=== PATIENT | female | born 1980 | race Caucasian/White ===

== ENCOUNTER 2023-12-22 14:13 | Outpatient (REF) | payer OTHER, SELFPAY ==
--- NOTE | ~2023-12-22 | MM_ITS ---
EXAMINATION: MM SCREENING DIGITAL BREAST TOMOSYNTHESIS, BILATERAL CLINICAL INFORMATION: Screening. Asymptomatic. COMPARISON: Mammography: Baseline. TECHNIQUE: Digital breast mammography with tomosynthesis is performed in both the craniocaudal and mediolateral oblique views along with computer-aided detection (CAD). FINDINGS: The breasts are heterogeneously dense, which may obscure small masses (ACR BI-RADS breast composition Category c). There are no significant masses, abnormal calcifications, or other abnormalities. MM/MM tomosynthesis screening BI IMPRESSION: No mammographic evidence of malignancy. ASSESSMENT: BI-RADS BI-RADS 1 - Negative RECOMMENDATION: Routine annual mammography screening. 1 year F/U This examination should not preclude the clinical evaluation of a suspicious palpable abnormality. This patient's information was entered into a reminder system with a target due date for their next mammogram. Electronically signed by: Danielle Clayton DO 12/24/2023 08:16 PM EDT
== END 2023-12-22 14:14 | disposition home or self-care (01) ==
LOC: HO.MAMMO 14:13
PROVIDERS: PCP Nurse Practitioner Adult Health; Visit Provider Nurse Practitioner Adult Health
DX: Z12.31 Encounter for screening mammogram for malignant neoplasm of breast (principal)
CPT/HCPCS: 77063; 77067

== ENCOUNTER → 2023-12-22 14:30 | Outpatient (BNV) | payer OTHER, SELFPAY | PROVIDERS: PCP Nurse Practitioner Adult Health; Visit Provider Internal Medicine | DX: Z12.31 Encounter for screening mammogram for malignant neoplasm of breast (principal) | CPT/HCPCS: 77063; 77067 ==

== ENCOUNTER 2024-03-08 07:53 | Outpatient (REF) | payer OTHER, SELFPAY ==
[2024-03-08 10:37] LABS: MANUAL DIFF FLAG NO
[2024-03-08 10:40] LABS: Basophils Absolute Auto 0.1 X10*3/uL (0.0-0.2); Basophils Percent Auto 1.1 % (0-2); Eosinophils Absolute Auto 0.6 X10*3/uL (0.0-0.4); Hematocrit 39.7 % (37.0-47.0); Hemoglobin 13.5 g/dl (12.0-16.0); Imm Gran Abs Auto 0.02 X10*3/uL (0.00-0.03); Imm Gran Pct Auto 0.2 % (0.0-0.4); Lymphocytes Absolute Auto 3.2 X10*3/uL (1.2-4.9); Lymphocytes Percent Auto 32.3 % (20-40); Mean Corpuscular Hemoglobin 31.7 pg (27.0-33.0); Mean Corpuscular Volume 93.2 fL (80.0-98.0); Mean Platelet Volume 10.6 fL (9.4-12.3); Monocytes Absolute Auto 0.9 X10*3/uL (0.1-1.2); Monocytes Percent Auto 8.7 % (2-11); Neutrophils Absolute Auto 5.1 x10*3/uL (2.0-8.3); Neutrophils Percent Auto 51.7 % (45-73); Platelet Count 323 X10*3/uL (160-400); Red Blood Count 4.26 X10*6/uL (4.20-5.50); Red Cell Distribution Width 12.4 % (11.0-16.0); White Blood Count 9.9 X10*3/uL (4.8-10.8)
[2024-03-08 11:04] LABS: Alanine Aminotransferase 18 U/L (0-31); Albumin Level 3.8 g/dL (3.5-5.0); Alkaline Phosphatase 79 U/L (39-117); Anion Gap 8 (12-20); Aspartate Amino Transferase 19 U/L (5-31); Bilirubin Total 0.5 mg/dL (0.0-1.0); Blood Urea Nitrogen 11 mg/dL (9-16); Calcium 8.6 mg/dL (8.4-10.2); Carbon Dioxide 29 mmol/L (22-29); Chloride 101 mmol/L (96-108); Cholesterol 144 mg/dL (<200); Estimated Glomerular Filt Rate > 60; Glucose Random 150 mg/dL (60-115); HDL Cholesterol 56 mg/dL (>40); LDL Cholesterol Calculated 75 mg/dL (<100); Potassium 4.1 mmol/L (3.3-5.1); Sodium 134 mmol/L (135-145); Total Protein 7.4 g/dL (6.5-8.0); Triglycerides 68 mg/dL (<150)
== END 2024-03-08 07:54 | disposition home or self-care (01) ==
LOC: HO.10HDL 07:53
PROVIDERS: Visit Provider Nurse Practitioner Adult Health
DX: E55.9 Vitamin D deficiency, unspecified (principal); E10.65 Type 1 diabetes mellitus with hyperglycemia
CPT/HCPCS: 36415; 80053; 80061; 82306; 85025

== ENCOUNTER 2024-05-02 12:20 | Outpatient (REF) | payer OTHER, SELFPAY ==
[2024-05-02 13:42] LABS: Anion Gap 10 (12-20); Blood Urea Nitrogen 12 mg/dL (9-16); Carbon Dioxide 27 mmol/L (22-29); Chloride 103 mmol/L (96-108); Estimated Glomerular Filt Rate > 60; Glucose Random 202 mg/dL (60-115); Potassium 3.8 mmol/L (3.3-5.1); Sodium 136 mmol/L (135-145)
== END 2024-05-02 12:21 | disposition home or self-care (01) ==
LOC: HO.10HDL 12:20
PROVIDERS: Visit Provider Nurse Practitioner Adult Health
DX: E87.1 Hypo-osmolality and hyponatremia (principal)
CPT/HCPCS: 36415; 80048

== ENCOUNTER 2024-12-19 07:56 | Outpatient (REF) | payer OTHER, SELFPAY ==
--- OUTSIDE RECORDS SUMMARY | 2024-12-19 08:02 | XMS_ITS | Encounter Summary ---
Author Organization [facility] Address [address] [place] [address] Phone Care Team Providers Care Facility Maintenance Technician Name Role Phone Sheron Koroma SHIP SUPERINTENDENT Primary Care Provider [phone] Dany Burnett MD Unavailable [phone] Alvina Brooks OD Unavailable Madison Castillo MD Unavailable [phone] Angelica Gonzales SHIP SUPERINTENDENT Unavailable Giovanna Lu MILLINERY SALESPERSON Unavailable Star Oleary OD Unavailable [phone] Encounter Details Date Type Department Care Team (Late st Contact Info) Description 05/10/2020 Procedure Pass [facility], Ct Scan - [address] [address] Social History Tobacco Use Types Packs/Day Years Used Date Smoking Tobacco: Never Smokeless Tobacco: Never Alcohol Use Standard Drinks/Week Comments Yes 0 (1 standard drink = 0.6 oz pur e alcohol) <2 drinks/month Comments No Sex and Gender Information Value Date Recorded Sex Assigned at Not on file Legal Sex Female 9:20 PM EDT Gender Identity Not on file Sexual Orientation Not on file 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 Not on file Not on file documented as of this encounter Plan of Treatment Upcoming Encounters Date Type Department Care Team (Late st Contact Info) Description 01/23/2025 8:00 AM EST Office Visit [facility] [address] [place] [address] [place] [address] Angelica Gonzales CNP 22 [facility], 1st [place] [address] 06/06/2025 8:00 AM EDT Office Visit [address] [place] [address] Sheron Koroma CNP [address] [place] [address], [address] [place] [address] 06/08/2025 2:00 PM EDT Office Visit [address] [place] [address] Sheron Koroma CNP [address] [place] [address], [address] [place] [address] documented as of this encounter Visit Diagnoses Not on filedocumented in this encounter Additional Health Concerns Infection Onset Date Last Indicated Resolved Time CoV-Presumed 12/10/2021 12/10/2021 12/31/2021 1:22 AM EDT Assessment Noted Time PHQ-2 Depression Total Score: 0 03/13/20 10:50 AM EST documented as of this encounter Care Teams Facility Maintenance Technician Relationship Specialty Start Date End Date Sheron Koroma CNP [address] [place] [address], [address] [place] [address] PCP - General Family Medicine 05/19/19 Dany Burnett MD [address] [place] [address], [address] [place] [address] Internal Medicine 05/19/19 Alvina Brooks OD [address] [place] [address] Optometry 09/03/20 05/27/23 Madison Castillo MD 22 [facility], [address] [place] [address] [email or web address] Medicine 05/28/23 Angelica Gonzales CNP [address] [address] Nurse Practitioner 05/28/23 Giovanna Lu NP 269 [place] [facility] [address]Allergy [facility] [place] [address] Nurse Practitioner 05/28/23 Star Oleary OD 1655 [facility] [address] [address] Optometry 06/06/24 documented as of this encounter Additional Source Comments The information contained in this document represents components of the legal health record. It is not the complete legal health record.[facility]
--- OUTSIDE RECORDS SUMMARY | 2024-12-19 08:02 | XMS_ITS | Encounter Summary ---
Author Organization [facility] Address [address] [place] [address] Phone Care Team Providers Care Road Maker Name Role Phone Sheron Koroma VACCINE MANAGER Primary Care Provider [phone] Dany Burnett MD Unavailable [phone] Madison Castillo MD Unavailable [phone] Angelica Gonzales VACCINE MANAGER Unavailable Giovanna Lu ART DISPLAY MAKER Unavailable [phone] Star Oleary OD Unavailable [phone] Encounter Details Date Type Department Care Team (Late st Contact Info) Description 10/23/2024 Telephone [facility] [address] [place], [place] [id number] [email or web address] Social History Tobacco Use Types Packs/Day Years Used Date Smoking Tobacco: Never Smokeless Tobacco: Never Alcohol Use Standard Drinks/Week Comments Yes 0 (1 standard drink = 0.6 oz pur e alcohol) ~1 drink/month (2024) Child or Family Care Answer Date Record ed Do you have problems with on e of the following making it difficult for you to work, study, or receive health care? No 06/06/2024 Education Answer Date Recorded Are you interested in help w ith more adult education (for example, completing high school, GED, job training, learning the [place] language, technical skills, or developing parenting skills)? No 06/06/2024 Are you concerned about learning? Not on file 06/06/2024 No 06/06/2024 Yes 06/06/2024 Food Answer Date Recorded Within the past 6 months we worried whether our food would run out before we got money to buy more. Never True 06/06/2024 Within the past 6 months the food we bought just didn't last and we didn't have enough money to get more. Never True Residential Stability Answer Date Recor ded What is your housing situation today? I have bernard sing 06/06/2024 How many times have you move d in the past 12 months? Zero (I did not move) 06/06/2024 Paying for Meds Answer Date Recorded Do you have trouble paying for medicines? No 06/06/2024 Paying Utility Bills Answer Date Record ed Do you have trouble paying your heating or elect ricity bill? No 06/06/2024 Transportation Answer Date Recorded Has the lack of transportati on kept you from medical appointments or from getting medications? No 06/06/2024 Unemployment Answer Date Recorded Are you currently unemployed or working on a part-time or temporary basis, and looking for work? No 06/06/2024 Digital Access Answer Date Recorded No 06/06/2024 Yes 06/06/2024 Do you have reliable internet access at home? Ye s 06/06/2024 Do you have a device (e.g., phone, tablet, computer) with a working camera? Yes 06/06/2024 Intimate Partner Violence Answer Date R ecorded Denied Basic Needs Not on file 06/06/2024 In the past 12 months have y ou been in a relationship with a person who hurts, threatens, or tries to control you? No 06/06/2024 Worried food would run out Not on file 06/06 In the past 12 months have y ou been in a relationship with a person who hurts, threatens, or tries to control you? No 06/06/2024 Comments No Sex and Gender Information Value [...] Description 01/23/2025 8:00 AM EST Office Visit [facility] [address] [place] [address] [place] [address] Angelica Gonzales CNP [address] [place] [address], [address] [place] [address] 06/06/2025 8:00 AM EDT Office Visit [address] [place] [address] Sheron Koroma CNP [address] [place] [address], [address] [place] [address] 06/08/2025 2:00 PM EDT Office Visit [address] [place] [address] Sheron Koroma CNP [address] [place] [address], [address] [place] [address] documented as of this encounter Visit Diagnoses Not on filedocumented in this encounter Additional Health Concerns Assessment Noted Time PHQ-2 Depression Total Score: 0 06/07/19 25 2:44 PM EDT documented as of this encounter Care Teams Road Maker Relationship Specialty Start Date End Date Sheron Koroma CNP [address] [place] [address], [address] [place] [address] PCP - General Family Medicine 05/19/19 Dany Burnett MD [address] [place] [address], [address] [place] [address] Internal Medicine 05/19/19 Madison Castillo MD 22 [facility], [address] [place] [address] [email or web address] Internal Medicine 05/28/23 Angelica Gonzales CNP 22 [facility], [address] [place] [address] [email or web address] Nurse Practitioner 05/28/23 Giovanna Lu NP [address] [place] [address] [address]ergy [facility] [place] [address] Nurse Practitioner 05/28/23 Star Oleary OD 1655 [facility] [address] [address] Optometry 06/06/24 documented as of this encounter Additional Source Comments The information contained in this document represents components of the legal health record. It is not the complete legal health record.[facility]
--- OUTSIDE RECORDS SUMMARY | 2024-12-19 08:03 | XMS_ITS | Clinical Summary ---
Author Organization [facility] Address [address] [place] [address] Phone Care Team Providers Care Surveyor Oil Well Directional Name Role Phone Sheron Koroma COTTON CHOPPER Primary Care Provider [phone] Dany Burnett MD Unavailable [phone] Madison Castillo MD Unavailable [phone] Angelica Gonzales CNP Unavailable [phone] Giovanna uL ENVELOPE ADJUSTER Unavailable [phone] Star Oleary OD Unavailable [phone] Allergies Active Allergy Reactions Criticality Noted Date Comments Nsaids (Non-Steroidal Anti-Inflammatory Drug) Shortness Of Breath High 05/26/2019 Medications triamcinolone (NASACORT AQ) 55 mcg/actuation nasal inhaler 2 sprays by Nasal route daily. Active fexofenadine (ABBY) 180 MG tablet Take 180 mg by mouth daily. Active blood-glucose transmitter (DEXCOM G6 TRANSMITTER MISC) by Miscellaneous route. Active DUPIXENT SYRINGE 300 mg/2 mL subcutaneous syringe Inject 300 mg under the skin once a week. 023 Active ACCU-CHEK GUIDE TEST STRIPS Strp stripsIndication s:Type 1 diabetes mellitus without complication,Ins ulin pump in place 1 each by Miscellaneous route 2 (two) times a day. 200 strip 11 024 Active insulin pen needles, disposable, 32 gauge x NdleIndications: Type 1 diabetes mellitus with hyperglycemia 1 each by Miscellaneous route as needed. 30 each 1 024 Active montelukast (SINGULAIR) 10 mg tablet TAKE ONE (1) TABLET BY MOUTH EVERY NIGHT AT BEDTIME 90 tablet 3 025 Active HUMALOG U-100 INSULIN 100 unit/mL injection vialIndications: Type 1 diabetes mellitus with hyperglycemia INJECT UP TO 110 UNITS DAILY VIA INSULIN PUMP 100 mL 3 025 Active pravastatin (PRAVACHOL) 40 MG tablet TAKE ONE (1) TABLET BY MOUTH EVERY DAY 120 tablet 2 025 Active ZEPBOUND 2.5 mg/0.5 mL subcutaneous penIndications:T ype 1 diabetes mellitus with hyperglycemia Inject 0.5 mL (2.5 mg total) under the skin every 7 days. 2 mL 5 025 2024 Discontinued Active Problems Problem Noted Date Diagnosed Date BMI 33.0-33.9,adult 07/21/2024 Assessment & Plan (07/21/2024 11:30 AM EDT): - She reports consistent weight gain, weight gain has been consistent over the past ~9 months, steadily gaining 16 pounds from November until today's visit - A prescription for Zepbound 2.5 mg weekly will be initiated, has tried and failed Ozempic, Bydureon, and Victoza in the past, we discussed if unable to tolerate zepbound, likely side effects are a class effect and unlikely to tolerate any of the GLP1 or GLP1/GIP medications - She is advised to monitor for side effects such as nausea, constipation, or worsening acid reflux and to contact the office if any persistent side effects occur. 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 Ensure yearly diabetic eye exam. Assessment & Plan (07/21/2024 11:30 AM EDT): Up to date on eye care Family history of breast cancer in mother 2023 Assessment & Plan (12/03/2023 4:50 PM EDT): Recent diagnosis (age 74) treated with lumpectomy and sentinel node biopsy x 1. Low risk of recurrence per Roverto. She agrees to baseline mammogram. Encounter for general adult medical examination with abnormal findings 05/28/2023 Assessment & Plan (06/06/2024 3:40 PM EDT): Eligible for Covid vaccine at the pharmacy. Warning signs of breast cancer and breast self-awareness reviewed. Pap smear 2026 per ASCCP guidelines. CRC screening age 45. Labs are up to date. We discussed options for dental care; she has dental anxiety. Assessment & Plan (05/28/2023 3:47 PM EST): Eligible for Covid vaccine at the pharmacy. The rest of her immunizations are up to date. Warning signs of breast cancer and breast self-awareness reviewed. We discussed baseline mammography which she declines for now. Pap smear updated per ASCCP guidelines. CRC screening age 45. Labs as below. 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 Bloating 05/28/2023 Assessment & Plan (05/28/2023 3:51 PM EST): Given bloating and persistently low vitamin D level, we'll check labs today. I also placed a referral to GI to consider EGD. For now, continue weekly D2 therapy, d/c OTC D3. Vitamin D deficiency, unspecified 11/16/2022 Assessment & Plan (06/06/2024 3:40 PM EDT): Level was 30 when last checked. Assessment & Plan (12/03/2023 4:51 PM EDT): Check level before refilling vitamin D2. Consider D3 supplementation if borderline. Assessment & Plan (11/16/2022 4:48 PM EDT): Will prescribe another 5 months of weekly D2 therapy and she will hold D3 prescription at this time. Check labs in 5-6 months. If there is no improvement, consider GI consult. There is no evidence of underlying hepatic or renal disorders and no medications known to contribute to deficiency. Type 1 diabetes mellitus with hyperglycemia 10/21 Assessment & Plan (12/06/2024 8:58 AM EDT): A1c to be done in office at next visit with Angelica in January. She frustrated with her weight as she is exercising regularly and following a healthful diet. She reports that blood sugars have been good with new pump. BP is at goal of <130/80. Urine microalbumin/creatinine ratio was normal in the spring. Flu shot today. Eligible for Covid vaccine. Tdap 2028, sooner with injury. Assessment & Plan (07/21/2024 11:30 AM EDT): - Her time in range has improved from 45% at last visit to 64.5% over the past two weeks, representing ~20% increase. - The average glucose level has decreased from 209 to 166, and the A1c level has improved from 8.6% to 7.6%. The highest average daily glucose level was 189 in the past 2 weeks, still lower than overall average at our last visit . - The total daily insulin dose on the pump download is 82.6 units, and the prescription is for 90 units, this was increased today to 110 units to avoid running out of insulin too soon. - She is advised to continue with the current pump settings and to try dosing usual selection for meals more frequently. A trial of a less breakfast dose for the second cup of coffee will be initiated. Refills for insulin will be provided. -Up to date on eye and foot care, annual labwork, this was reviewed Orders: POCT Hemoglobin A1c ZEPBOUND 2.5 mg/0.5 mL subcutaneous pen; Inject 0.5 mL (2.5 mg total) under the skin every 7 days. HUMALOG U-100 INSULIN 100 unit/mL injection vial; INJECT UP TO 110 UNITS DAILY VIA INSULIN PUMP Assessment & Plan (06/06/2024 3:40 PM EDT): Urine microalbumin/creatinine sample collected today. A1c will be updated at upcoming appointment with Angelica Gonzales NP. She is awaiting new insulin pump. Reach out to Angelica with more frequent lows. We will request her recent eye exam. Orders: Microalbumin/creatinine ratio, random urine; Future Assessment & Plan (01/17/2024 10:31 AM EDT): Reviewed pump data with Roverto, most consistent of mealtime elevations following lunch and dinner Adjustments made as noted Continues using CGM consistently Did not tolerate Ozempic and didn't find much BG improvement either Encouraged continued efforts at mindful, balanced eating Encouraged continued efforts at physical activity as tolerated Due for annual labwork which has been ordered by primary care and Roverto plans to go Up to date on eye and foot care and flu vaccine We will follow up in 6 months. Advised to contact office with any questions or concerns Assessment & Plan (12/03/2023 4:51 PM EDT): Update A1c and other labs as ordered. Follow up with waste/materials exchange specialist as planned. Annual diabetic eye exam. Continue regular physical activity. Assessment & Plan (05/28/2023 3:49 PM EST): She has made adjustments to her pump settings and will start Ozempic tonight. We discussed LDL goal <70. Given that she is starting Ozempic, she elects to recheck lipid panel in about 6 months. Continue pravastatin at current dosing. If LDL is still above goal when next checked we'll adjust statin therapy. We will request notes from her recent diabetic eye exam. Assessment & Plan (05/28/2023 9:27 AM EST): Has continued to do well on Tandem X2 with Dexcom in CIQ but has been requiring more insulin despite a healthy lifestyle CGM patterns indicate a lower than ideal TIR and high overall average but also very low hypoglycemia frequency Weight has remained generally stable, Roverto is frustrated by inability to lose weight despite healthy lifestyle habits Roverto has a prescription for Ozempic in process, if this is covered this is likely to improve glucose management and also help with weight loss efforts, Roverto is encouraged to be in touch with me once she begins this therapy and we can help her adjust insulin delivery settings as needed Roverto has a h/o retinopathy and significant glucose lowering in short time may lead to worsening of this, continued GLP1ra therapy at low dose and encouragement of gradual improvement in glucose control is not likely to lead to any concerning changes and overall improvement is likely to help reduce progression Encouraged to continue efforts at healthy lifestyle Up to date on annual labs and these are reassuring, up to date on foot exam Advised to contact me with any questions or concerns. Roverto will follow up in 3 months, sooner if needed as she starts GLP1ra therapy Assessment & Plan (01/21/2023 12:25 PM EDT): Has continued to do well on Tandem X2 with Dexcom in CIQ CGM patterns indicate a lower than ideal TIR but also very low hypoglycemia frequency Weight gain has been a main concern for Roverto over the past year, bloodwork was done at PCP visit and there was no determined cause We discussed options, Roverto is interested in a medical intervention like a medication. Unfortunately with a T1D diagnosis, it can be difficult to get GLP- 1ras covered since they are currently only indicated for T2DM. We discussed Wegovy as being an option that is indicated solely for weight loss. Roverto has been on GLP1ra in the past, tolerated Bydureon but this led to hypoglycemia and was discontinued by the ordering provider in [place], also tried Victoza, but could not tolerate it Roverto would like to try GLP1ra therapy again if this is covered by insurance, we discussed trying Ozempic to see if it is covered, if so this is the same active ingredient as Wegovy and Roverto would be able to start at a low dose given past reaction to other GLP1 agents Encouraged Roverto to wait on starting this until after eye exam given there is a chance of retinopathy, I will check in with Roverto after the visit to talk about next steps, briefly discussed risks of starting GLP1ra therapy with retinopathy Encouraged to continue efforts at healthy lifestyle Roverto would like to have annual flu vaccine, unfortunately we were unable to provide this during the visit today, but Roverto will come back tomorrow to receive this Up to date on annual labs and these are reassuring, up to date on foot exam Advised to contact me with any questions or concerns. Roverto will follow up in [address] Castillo, sooner with me if Roverto starts GLP1ra therapy Assessment & Plan (12/22/2022 3:42 PM EDT): Encouraged to reach out to her pump dry cell sealer and supply distributer to discuss recent issues. F/up with [facility] 01/20/23 as scheduled, sooner if she continues to experience unexpected highs and lows. She will get a flu shot this fall. Assessment & Plan (11/16/2022 4:45 PM EDT): She is trending glucose with a second CGM profile around her period and will follow up with [facility] in January. She is frustrated with weight gain despite improved eating patterns. She has had a slight rise in LDL despite dose titration of statin. We discussed possible sleep medicine consult. On questioning, she admits that her energy may have been better on sertraline and she is willing to try this again to see if her energy improves. Start sertraline 50 mg daily and follow up via telemedicine in about a month. Consider sleep consult if energy symptoms are not improving. Update labs now including ferritin, CBC, and TSH though there were normal in the spring. High risk human papilloma virus (HPV) infection of cervix 05/19/2022 Assessment & Plan (06/06/2024 3:40 PM EDT): Pap smear 2026. Assessment & Plan (05/28/2023 3:49 PM EST): Consider return to [facility] based on cytology/HPV findings. Insulin pump in place 01/30/2020 Assessment & Plan (07/21/2024 11:30 AM EDT): No insulin pump adjustments made today, discussed strategies to aid in mealtime increases, including dosing usual for meals more often and trying an additional less breakfast dose for second cup of coffee in the morning, which could be leading to the elevation around 9-10am Reviewed specifics to the iLet pump, this pump does not take any settings, only weight and lets user choose usual , lower , or higher targets Reviewed insulin pump and CGM data with Roverto today, this indicates improving control since starting the system with accompanying less diabetes burden and less work which is extremely positive Discussed that GLP1/GIP may decrease insulin resistance and to keep close eye on blood sugar patterns, insulin pump should auto adjust to provide less insulin if needed Assessment & Plan (06/06/2024 3:40 PM EDT): Assessment & Plan (01/17/2024 10:44 AM EDT): Current insulin pump setting (changes in bold) Time Basal Rates? ICR ISF Target IOB 12am 0.90u/hr 5.2 35 110mg/dl 5hrs 3am 1.3 5.2 38 7am 1.40 4.8 35 11am 1.20 6.2 40 1pm 0.90 6.2 40 5pm 1.15 6.2 35 9pm 1.1 5 38 TOTAL 27.4u/day Adjusted your carb ratio with lunch and dinner to give your MORE insulin with carb entry Encouraged Roverto to tighten 11am and 1pm correction factor to 35 if daytime corrections seem to be less effective, this was not changed today. Advised that any changes done in profile1 should also be made to profile 2 to match up Encouraged activating profile 2 when hyperglycemia starts before menses, this will give Roverto more background insulin and will hopefully reduce hyperglycemia Encouraged reaching out to [employer] to see if they need to replace pump for battery issues Briefly discussed available pumps, Roverto asks about the iLet pump, encouraged checking with [employer] for out of warranty Assessment & Plan (05/28/2023 9:21 AM EST): New insulin pump setting Time Basal Rates? ICR ISF Target IOB 12am 0.90u/hr 5.2 35 110mg/dl 5hrs 3am 1.30 5.2 38 6am 1.40 4.8 35 11am 1.20 6.2 40 1pm 0.90 6.2 40 5pm 1.15 6.0 35 9pm 1.10 5.0 38 TOTAL 27.4u/day We adjusted the carb ratios during the day to help optimize prandial glucose control If Roverto begins Ozempic therapy then she is likely to require less insulin overall, at the very least it should optimize her control using her current settings We discussed the changes below to help make corrections more conservative on GLP1ra therapy Current insulin pump setting (changes in bold) Time Basal Rates? ICR ISF Target IOB 12am 0.80u/hr 5.2 40 110mg/dl 5hrs 3am 1.10 5.2 42 7am 1.40 4.8 40 11am 1.20 6.8 45 1pm 0.90 6.8 45 5pm 1.15 6.0 40 9pm 0.90 5.0 42 Advised to continue to bolus for meals prior to eating which should provide better prandial control than dosing after Roverto is encouraged to be in touch with me if any questions arise, we will follow up in 3 months and sooner if needed Advised to be in touch if changes to insulin need after starting Ozempic Assessment & Plan (01/21/2023 12:21 PM EDT): Current insulin pump setting Time Basal Rates? ICR ISF Target IOB 12am 0.90u/hr 5.2 35 110mg/dl 5hrs 3am 1.3 5.2 38 7am 1.40 4.8 35 11am 1.20 6.8 40 1pm 0.90 6.8 40 5pm 1.15 6.5 35 9pm 1.1 5 38 TOTAL 27.4u/day We did not make any adjustments to settings today, we discussed making adjustments once starting GLP1ra, primarily to overnight basals and correction factors throughout the day because hypoglycemia risk seems to be highest overnight and following multiple autocorrections during the day We discussed that if starting GLP1ra, this will likely lead to an improvement in insulin sensitivity, especially with weight loss so encouraged Roverto reaching out if having frequent hypoglycemia Roverto is encouraged to be in touch with me if any questions arise Assessment & Plan (10/21/2022 12:37 PM EDT): Current insulin pump setting Time Basal Rates? ICR ISF Target IOB 12am 0.90u/hr 5.2 35 110mg/dl 5hrs 3am 1.3 5.2 35 7am 1.40 4.8 35 11am 1.20 6.8 40 1pm 0.90 6.8 40 5pm 1.15 6 35 9pm 1.1 5 38 TOTAL 27.4u/day Higher basal rates - for times when requiring more insulin or around the time of menses Time Basal Rates? ICR ISF Target IOB 12am 1.0u/hr 5.2 35 110mg/dl 5hrs 3am 1.4 5.2 38 7am 1.5 4.8 35 11am 1.3 6.8 40 1pm 1.0 6.8 40 5pm 1.25 6.5 35 9pm 1.2 5 38 TOTAL 27.3u/day We did not make any adjustments to normal insulin profile settings today but we did add in a new profile for Roverto to activate when noticing higher blood sugars, especially around the time of menses Advised to bolus for meals 10 minutes prior to eating which may provide better prandial control Discussed adjusting carb ratio with dinner or bedtime snack if starting to notice hypoglycemia after these boluses Encouraged Roverto to reach out to [employer] support for trouble with tconnect Roverto is encouraged to be in touch with me if any questions arise Assessment & Plan (04/27/2022 10:11 PM EST): Current insulin pump setting Time Basal Rates? ICR ISF Target IOB 12am 0.90u/hr 5.2 35 110mg/dl 5hrs 3am 1.40 5.2 35 7am 1.40 4.8 35 11am 1.20 6.8 40 1pm 0.90 6.8 40 5pm 1.15 6 35 9pm 1.20 5 38 TOTAL 28.1u/day We did not make any adjustments to insulin pump settings today Advised to bolus for meals 10 minutes prior to eating which may provide better prandial control than current dosing habits Will continue her current pre-exercise pump adjustments but again advised against running insulin higher prior to planned activity as this leads to increase in autobasal and autocorrection activity which may lead to hypoglycemia during and after exercise Roverto is encouraged to be in touch with me if any questions arise Assessment & Plan (12/25/2021 2:38 PM EDT): Roverto was given the following instructions: New insulin pump setting Time Basal Rates? ICR ISF Target IOB 12am 0.90u/hr 5.2 35 110mg/dl 5hrs 3am 1.50 5.2 35 7am 1.40 4.8 35 11am 1.20 6.8 40 1pm 0.90 6.8 40 5pm 1.15 6 35 9pm 1.15 5 35 TOTAL 28.35u/day We increased late afternoon/evening basal rate to help improve overall control at this time of day, advised to continue to evaluate patterns Encouraged to continue to set the exercise mode prior to exercise, but also to experiment with suspending pump delivery for up to an hour prior to activity and then starting exercise mode prior to exercise, we discussed taking a very small bolus at the start of exercise, 0.05u, this will prevent autobolus delivery for an hour after this Roverto is encouraged to be in touch with me if any questions arise Assessment & Plan (08/14/2021 4:36 PM EDT): Roverto was given the following instructions: New insulin pump setting Time Basal Rates? ICR ISF Target IOB 12am 0.95u/hr 5.2 35 110mg/dl 5hrs 3am 1.70 5.2 35 7am 1.50 5.2 35 11am 1.50 6.8 40 1pm 0.90 6.8 40 5pm 1.05 6 35 9pm 1.20 5 35 TOTAL 30.1u/day Considerations for changes are in bold above: 1) keep an close eye on your overnight patterns, particularly in the bowling or skating front desk clerk hours the jump in basal at 3am is pretty profound it may not need to be quite this high, in general as you exercise in the evening you may notice more lows or tendency for lows late into the night due to increased insulin sensitivity 2) we talked about reducing your early afternoon basal rate to 0.90u/hr from 1.05u/hr, this may help to keep things more stable as you get closer to your usual workout time 3) while you adjust the basal rate lower in the early afternoon, you may want to consider to adjust the insulin to carb ratio at 11am and 1pm to help cover your carbs more effectively Continue to set the exercise mode at least an hour prior to exercise, but try not to run yourself too high prior to exercise since in exercise mode basal is still increasing when you are above 140 and you are getting autocorrections up to every one hour if you are above 180 Assessment & Plan (04/08/2021 1:46 PM EST): Current insulin pump setting Time Basal Rates? ICR ISF Target IOB 12am 0.95u/hr 5.2 35 110mg/dl 5hrs 3am 1.70 5.2 35 7am 1.50 5.2 35 11am 1.50 7.2 40 1pm 1.05 7.2 40 5pm 1.05 5 35 9pm 1.20 5 35 TOTAL 30.7u/day Started Tandem X2 with Dexcom G6 earlier this month, doing well Glucose patterns are more stable than in the past, TIR 68%, low hypoglycemia frequency We discussed consideration for I:C ratio adjustments to optimize prandial control after morning and evening meals Assessment & Plan (08/08/2020 12:50 PM EDT): Current insulin pump setting Time Basal Rates? Time ICR Time ISF Time Target IOB 12am 0.95u/hr 12am 5.2 12am 37 12am 100-130 mg/dl 4hrs 3am 1.70 11am 7.2 11am 42 6am 90-110 7am 1.55 5pm 5 5pm 33 8pm 100-130 1pm 1.00 9pm 1.20 OR Automode We did not adjust insulin pump settings We discussed consideration for dosing a small bolus prior to or after suspending pump for shower, this may help to reduce rise in blood sugar in the morning Carb ratio and early am basal rates appear to be appropriate but if morning rise in glucose continues then increase in basal rate may be more appropriate Advised to change insulin pump infusion sets every 2-3 days Assessment & Plan (01/30/2020 1:19 PM EST): Current insulin pump setting Time Basal Rates? Time ICR Time ISF Time Target IOB 12am 0.95u/hr 12am 5.5 12am 35 12am 100-130 mg/dl 4hrs 3am 1.65 11am 7 11am 45 6am 90-110 7am 1.50 5pm 5 5pm 35 8pm 100-130 1pm 0.975 9pm 1.35 OR Automode We discussed consideration for earlier prebolusing at breakfast to reduce rise in prandial glucose, this will likely also help reduce background autobasal activity which is likely higher as blood sugar rises and then is partly responsible for glucose fall later in the morning, if prebolusing is not effective in reducing postbreakfast glucose then adjustment of I:C ratio to 5 may help Roverto is also encouraged to reduce carbs at breakfast, that is her highest carb meal, this too will likely benefit postprandial rise Environmental allergies 05/26/2019 Assessment & Plan (12/06/2024 8:58 AM EDT): She has been followed by [facility] but has been frustrated by difficulty scheduling and receiving prescriptions. Referred to [facility] Allergy. Continue Singulair, Abby, and Nasacort. Orders: Ambulatory referral to External Allergy Assessment & Plan (05/28/2023 3:20 PM EST): She finished weekly immunotherapy and is now on monthly maintenance. Symptoms are improved. She continues on daily monteleukast and is only using Abby as needed. Assessment & Plan (11/16/2022 4:49 PM EDT): Reviewed potential s/e with Dupixent. Doubt contribution to current conditions. TARYN (generalized anxiety disorder) 05/26/2019 Assessment & Plan (12/03/2023 4:51 PM EDT): Well managed off medication. Call with recurrence. Assessment & Plan (05/28/2023 3:49 PM EST): Adequately managed with sertraline 50 mg daily; she denies unwanted side effects. Assessment & Plan (12/22/2022 3:40 PM EDT): She has tolerated reintroduction of sertraline and has had improved sleep and energy. She is amenable to continuing sertraline through the winter months. Continue prescription D2 with plan to repeat level in April as previously ordered. Hyperlipidemia LDL goal <70 05/26/2019 Assessment & Plan (12/06/2024 8:58 AM EDT): On pravastatin 40 mg daily which she tolerates well. Await next labs. Consider switch to more potent statin if LDL remains >70. It was borderline on last blood work. Orders: Lipid panel; Future Comprehensive metabolic panel; Future Assessment & Plan (07/21/2024 11:30 AM EDT): On low intensity statin therapy Most recent LDL is in good control, ideal goal <70 with DM Assessment & Plan (06/06/2024 3:40 PM EDT): Last LDL was 75 in February. I think this is adequate for now. Discuss further with Angelica. Assessment & Plan (01/17/2024 12:54 PM EDT): On low intensity statin therapy Most recent LDL is in good control, ideal goal <70 with DM Assessment & Plan (12/03/2023 4:52 PM EDT): Due fasting lipid panel on pravastatin. She will do this in the next week. Assessment & Plan (05/28/2023 9:16 AM EST): On low intensity statin therapy Most recent LDL is in good control though above ideal target of <70 Assessment & Plan (01/21/2023 12:45 PM EDT): On low intensity statin therapy Most recent LDL is in good control, ideal goal <70 with DM Assessment & Plan (04/27/2022 10:04 PM EST): On low intensity statin therapy Most recent LDL is in good control Assessment & Plan (12/25/2021 2:38 PM EDT): On low intensity statin therapy Most recent LDL is at goal Assessment & Plan (08/14/2021 4:35 PM EDT): On low intensity statin therapy Most recent LDL is at goal Assessment & Plan (04/08/2021 1:40 PM EST): On low intensity statin therapy Most recent LDL is at goal Assessment & Plan (08/08/2020 12:51 PM EDT): On low intensity statin therapy Most recent LDL is at goal Assessment & Plan (01/30/2020 1:14 PM EST): On low intensity statin therapy Most recent LDL is at goal Assessment & Plan (06/30/2019 9:47 AM EDT): On low intensity statin therapy LDL goal <100 Has routine labs ordered on file and will have these done soon Resolved Problems Problem Noted Date Diagnosed Date Resolved Date Paronychia of right index finger 06/18/2023 06/06/2024 Assessment & Plan (06/18/2023 4:52 PM EDT): Advised warm compresses and topical antibiotics first line treatment. Advised she trial this for a few days. If no improvement or worsening advised she start oral antibiotics BID x 5 days. Take with food/probiotic. Call with worsening or failure to improve. Pt verbalized understanding, agreeable to plan. Malaise and fatigue 11/16/2022 05/28/19 24 Mixed hyperlipidemia 11/16/2022 023 Type 1 diabetes mellitus without complication 05/26/19 20 11/16/2022 Overview (06/30/2019): DIABETES HISTORY Diagnosis - type 1 diabetes, age 14 Treatment - basal bolus MDI, transitioned to insulin pump therapy ~2015 Assessment & Plan (10/21/2022 8:48 AM EDT): Has continued to do well on Tandem X2 with Dexcom in CIQ CGM patterns indicate a lower than ideal TIR but also very low hypoglycemia frequency Roverto has been under more stress over the past couple weeks, advised not being too hard on self and slowly getting back to adjusting bolus habits to help prandial control Encouraged to continue efforts at healthy lifestyle Advised to contact me with any questions or concerns We will follow up in 3 months and Roverto will return to meet with Dr. Castillo in 6 months Assessment & Plan (04/27/2022 10:10 PM EST): Has continued to do well on Tandem X2 with Dexcom in CIQ We revisited considerations for glucose and pump management around exercise and also strategies to prevent autocorrections during exercise CGM patterns indicate a lower than ideal TIR but also very low hypoglycemia frequency, advised to adjust bolus habits to help prandial control and this may result in higher TIR, if this does not prove effective then may also need insulin pump adjustments Encouraged to continue efforts at healthy lifestyle Advised to contact me with any questions or concerns We will follow up in 3-4 months Assessment & Plan (12/25/2021 2:41 PM EDT): Has continued to do well on Tandem X2 with Dexcom in CIQ We discussed considerations for glucose and pump management around exercise and also strategies to prevent autocorrections during exercise We discussed some strategic insulin pump adjustments to help stabilize glucose, particularly late in the day/evening CGM patterns indicate a lower than ideal TIR but also very low hypoglycemia frequency, modest changes made today may stabilize glucose late in the day and hopefully lead to increase in TIR Encouraged to continue efforts at healthy lifestyle Advised to contact me with any questions or concerns Most recent routine labs reviewed/discussed We will follow up in 4 months Assessment & Plan (08/14/2021 4:40 PM EDT): Has continued to do well on Tandem X2 with Dexcom in CIQ We discussed considerations for glucose and pump management around exercise and the downside of running glucose higher intentionally prior to exercise since the automated function will increase basal and give autocorrections which then increase IOB prior to activity and in turn may lead to hypoglycemia when active We discussed some strategic insulin pump adjustments to help stabilize glucose CGM patterns indicate a lower TIR over the previous 2 week period than at our last visit, this may be due to increased variability related to exercise We discussed that late afternoon/evening exercise may associated with lows more than morning exercise, we discussed the physiologic rationale for this Encouraged to continue efforts at healthy lifestyle Advised to contact me with any questions or concerns Most recent routine labs reviewed/discussed We will follow up in 4 months Assessment & Plan (04/08/2021 1:47 PM EST): Doing well since transition from Medtronic 770G to Tandem X2 earlier this month, doing well on this We discussed considerations for adjusting I:C ratio for morning and evening meals, this will likely lead to more stable prandial readings Encouraged to continue efforts at healthy lifestyle Advised to contact me with any questions or concerns Most recent routine labs reviewed/discussed We will follow up in 4 months Assessment & Plan (08/08/2020 12:54 PM EDT): Continues with suboptimal control overall, not currently using CGM We discussed some considerations for dosing adjustments based on patterns when able to follow these with CGM Will need rewritten order for CGM supplies to get enough, also advised to contact Medtronic directly if sensor does not last a specified amount of duration Encouraged to continue efforts at healthy eating and staying active Advised to contact me with any questions or concerns Assessment & Plan (01/30/2020 1:20 PM EST): Worsened control compared to usual patterns We discussed attention to prandial patterns and adjustment of timing of bolus to earlier prior to meal and/or adjustment of I:C ratio, also reducing carbs at breakfast will likely be helpful Encouraged to continue efforts at healthy eating and staying active Advised to contact me with any questions or concerns Assessment & Plan (06/30/2019 10:03 AM EDT): Historically very reasonable control, in recent past somewhat suboptimal due to challenges related to moving to area Due for insulin pump upgrade, will be upgrading to the Medtronic 670G with Smartguard, orders will be processed and we discussed how training is being done currently, our RN CDE will reach out to Roverto Currently using CGM, no download available for review however we discussed some patterns that Roverto has noted and considerations for insulin pump changes related to these Roverto is provided a share code for [employer] and is encouraged to share her data with us if she would like input on insulin delivery adjustments Encouraged to continue her healthy lifestyle and excellent efforts Advised to contact me with any questions or concerns We discussed COVID related considerations and precautions Encounters Date Type Department Care Team Description 12/06/2024 8:30 AM EDT Office Visit [facility] [address] [place] [address] Sheron Koroma, DAVID Type 1 diabetes mellitus with hyperglycemia (Primary Dx); 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; Hyperlipidemia LDL goal <70; Environmental allergies; Needs flu shot 10/23/2024 Telephone [facility] [address] [place] [address] Jojo Sims from Last 3 Months Immunizations Immunization Administration Dates Next Due COVID-19 (Pre) Pfizer Vaccine, mRNA, PF 04/01/2020,03/11/2020 COVID-19 (Pre-01/11) Pfizer Vaccine, mRNA, sven-sucrose, PF 04/23/2021 INFLUENZA, SPLIT VIRUS, TRIVALENT PF 12/06/2024, 12/03/2023 Influenza Quadrivalent MDCK Preservative Free IM 01/10/2020 Influenza Quadrivalent Preservative Free IM 11/0 04/2022,01/05/2022,02/03/2021 Influenza, Unspecified Formulation 11/20/2018, MMR 10/12/2015,09/13/2015 Pneumococcal conjugate PCV20 11/12/2021 Pneumococcal polysaccharide PPSV23 03/22/2017 Td (adult),2 Lf Tetanus Toxo id, PF, Adsorbed 12/13/2006,03/22/1996 Tdap 07/18/2018 Family History Medical History Relation Comments Hyperlipidemia Brother No Known Problems Daughter Esophageal cancer Father Worked in [employer] Glaucoma Maternal Grandfather Prostate cancer Maternal Grandfather Later in [facility] Diabetes type II Maternal Grandmother Breast cancer Mother Genetic testing not done Obesity Mother Treated with gas tric bypass Osteoarthritis Mother Psoriasis Mother Heart attack Paternal Grandfather Later in [facility] No Known Problems Paternal Grandmother Anxiety disorder Sister 1 Hypertension Sister 1 No Known Problems Sister 2 Colon cancer Neg Hx Macular degeneration Neg Hx Stroke Neg Hx Relation Status Comments Brother Alive Daughter Alive Father (Age 62) Maternal Grandfather Maternal Grandmother Mother Alive Paternal Grandfather Paternal Grandmother Sister 1 Alive Sister 2 Alive Social History Tobacco Use Types Packs/Day Years [...] high school, GED, job training, learning the [place] language, technical skills, or developing parenting skills)? [...] file Not on file Not on file Last Filed Vital Signs Vital Sign Reading Time Taken Comments Blood Pressure 118/62 12/06/2024 8:17 AM EDT Pulse 103 12/06/2024 8:17 AM EDT Temperature 36.4 C (97.6 F) 12/06/2024 8:17 AM EDT Respiratory Rate 18 10/20/2022 3:17 PM EDT Oxygen Saturation 98% 12/06/2024 8:17 AM EDT Inhaled Oxygen Concentration - - Weight 94.8 kg (209 lb) 12/06/2024 8:17 AM EDT Height 169.5 cm (5' 6.73 ) 12/06/2024 8:17 AM ED T Body Mass Index 33 12/06/2024 8:17 AM EDT Plan of Treatment Upcoming Encounters Date Type Department Care Team (Late st Contact Info) Description 01/23/2025 8:00 AM EST Office Visit [facility] [address] [place] [address] [place] [address] Angelica Gonzales, COTTON CHOPPER [address] [place] [address], [address] [place] [address] [email or web address] 06/06/2025 8:00 AM EDT Office Visit [address] [place] [address] Sheron Koroma CNP [address] [place] [address], [address] [place] [address] 06/08/2025 2:00 PM EDT Office Visit [address] [place] [address] Sheron Koroma CNP [address] [place] [address], [address] [place] [address] Health Maintenance Due Date Last Done Comments COVID-19 VACCINE ( season) 2024 04/23/2021, 04/01/2020, 03/11/2020 HEMOGLOBIN A1C 01/20/2025 07/20/2024, 12/21, 05/25/2023, Additional history exists DIABETIC EYE EXAM 03/23/2025 03/23/2024, , 04/22/2021, Additional history exists BLOOD PRESSURE 06/05/2025 12/06/2024 DEPRESSION SCREENING 06/06/2025 06/06/2024 URINE MICROALBUMIN/CREATININE RATIO 06/06/2025 06/06/2024, 05/28/2023, 06/10/2022, Additional history exists MAMMOGRAM 12/23/2025 12/24/2023, 12/03/2023 PAP SMEAR 05/27/2026 05/28/2023, 04/23, 05/14/2021, Additional history exists Adult Td,Tdap Booster 07/18/2028 07/18/2018 , 12/13/2006, 03/22/1996 HEPATITIS C SCREENING Completed 04/05/2021, 021 HIV ONE-TIME SCREENING (18-65 YEARS) Completed 04/05/2021 PNEUMOCOCCAL VACCINES (0-49 years) Completed 11/12/2021, 03/22/2017 INFLUENZA VACCINE Completed 12/06/2024, , 01/21/2023, Additional history exists SMOKING STATUS SCREENING (Once After 26 Yrs) Completed 12/06/2024 HEPATITIS A VACCINES Aged Out No long er eligible based on patient's age to complete this topic HIB VACCINES Aged Out No longer eligi ble based on patient's age to complete this topic MENINGOCOCCAL VACCINES (ACWY) Aged Out No longer eligible based on patient's age to complete this topic MENINGOCOCCAL VACCINES (B) Aged Out N o longer eligible based on patient's age to complete this topic Medical Devices Not on file Procedures Procedure Name Priority Date/Time Associated Diagnosis Comments POCT HEMOGLOBIN A1C Routine 07/20/2024 1 :14 PM EDT Type 1 diabetes mellitus with hyperglycemia MICROALBUMIN/CREATIN INE RATIO, RANDOM URINE Routine 06/06/2024 3:27 PM EDT Type 1 diabetes mellitus with hyperglycemia HM DIABETES EYE EXAM FOR RESULT ENTRY ONLY Routine 03/23/2024 11:35 AM EST HM MAMMOGRAPHY Routine 12/24/2023 4:55 PM EDT PAP TEST Routine 05/28/2023 12:00 AM EST HEPATITIS C ANTIBODY, QUALITATIVE Routine 04/05/2021 8:45 AM EST Need for hepatitis C screening test from Last 3 Months or Most Recently Relevant to Health Maintenance Results * (ABNORMAL) POCT Hemoglobin A1c (07/20/2024 1:14 PM EDT) Hemoglobin A1c 7.6(A) 4.2 - 5.6 % [facility] Other 07/20/2024 1:14 PM EDT us Angelica Gonzales CNP POINT OF CARE TEST ORDERABLES Final Result Performing Organization Address City/[facility] Co de Phone Number [address] [address], [facility] * Microalbumin/creatinine ratio, random urine (06/06/2024 3:27 PM EDT) URINE MICROALBUMIN <1.2 0 - 2.3 mg/dL [facility] URINE CREATININE 210 mg/dL [facility] MICROALB/CRE RATIO NOT CALCULATED 0 - 20 mg/g Cre [facility] Comment:due to Microalbumin <1.2 Urine (Urine) 06/06/2024 3:2 7 PM EDT 06/07/2024 3:11 PM EDT us Sheron Koroma COTTON CHOPPER URINE ORDERABLES Final Re sult Performing Organization Address City/[facility] Co de Phone Number [address] [address] * DIABETES EYE EXAM FOR RESULT ENTRY ONLY (03/23/2024 11:35 AM EST) us Historical Provider HEALTH MAINTENANCE Final Result * HM MAMMOGRAPHY FOR RESULT ENTRY ONLY (12/24/2023 4:55 PM EDT) us Historical Provider HEALTH MAINTENANCE Edited Result - Final * Pap Test (05/28/2023 12:00 AM EST) 05/28/2023 06/01/2023 9:0 4 AM EDT Narrative SEE NARRATIVE - 06/08/2023 2:21 [place] [address] Drier Take Off Tender: Francesca Jarrett MD CELERY TIER Cytology Report FINAL DIAGNOSIS A. PAP SMEAR (SUREPATH) CE: SPECIMEN ADEQUACY: Satisfactory for evaluation; transformation zone present. INTERPRETATION: NEGATIVE FOR INTRAEPITHELIAL LESION OR MALIGNANCY. Coccobacilli consistent with shift in bogdan Electronically Signed Out By: TONEY Ramirez(ASCP) TONEY Puckett(ASCP) The Pap test is a screening test primarily for squamous cancers and precursors and has associated false-negative and false-positive results. New technologies such as liquid-based preparations may decrease but will not eliminate all false-negative results. Regular sampling and follow-up of unexplained clinical signs and symptoms are recommended to minimize false negative results. PROCEDURES/ADDENDA HPV Testing (Requested) Ordered Date: 06/01/2023 A. PAP SMEAR (SUREPATH) CE: Human Papilloma Virus Test NEGATIVE for high-risk Human Papilloma Virus types 16, 18, 45 and the Other high risk probe set (Includes 31, 33, 35, 39, 51, 52, 56, 58, 59, 66, 68) Note: Testing performed by [facility] HR-HPV analysis. Clinical correlation is advised. This HPV test was performed at [facility], [address] [place] [address]. This test has been FDA approved for both SurePath and ThinPrep cervical cytology specimens. The accuracy and precision of this test for all other specimen sources has been verified in the Cytopathology Laboratory of the [facility] and has not been cleared or approved by the U.S. Food and Drug Administration. Clinical correlation is advised. CLINICAL HISTORY Date of Last Menstrual Period: 05/07/23 Infection History: HPV: HIGH RISK, 2021 Other Clinical Conditions: Screening Pap SPECIMEN SOURCE A: PAP SMEAR (SUREPATH) CE Patient Name: ROVERTO DUFF : 1980 (Age: 42) Sex: F Institution: [facility] Location: [facility] Date of Collection: 05/28/2023 Date of Reported: 06/08/2023 14:21 Results to: Sheron Koroma MSN us Sheron Koroma CNP CYTOLOGY ORDERABLES Final Result SEE NARRATIVE * Hepatitis C antibody, qualitative (04/05/2021 8:45 AM EST) HCV NON-REACTIV E NON-REACTI VE [facility] Blood 04/05/2021 8:45 AM EST 04/05/2021 8:51 AM EST us Sheron Koroma CNP LAB BLOOD ORDERABLES Shana l Result [facility] [address] [place] [address] from Last 3 Months or Most Recently Relevant to Health Maintenance Insurance [employer]AT[employer] Member Subscriber Plan / Payer ( fective 2023-) Name:Roverto Duffn Relation to Subscriber:Self Name:Roverto Duffn Payer ID:[id number] (NAIC) Type:PPO Address: [place] [id number] [facility] [employer] ADMINISTRATORS [facility] ADMINISTRATORS Care Teams Surveyor Oil Well Directional Relationship Specialty Start Date End Date Sheron Koroma CNP [address] [facility], [address] [place] [address] [email or web address] PCP - General Family Medicine 05/19/19 Dany Burnett MD [address] [facility] [place] [address] [email or web address] Internal Medicine 05/19/19 Madison Castillo MD [address] [facility] [place] [address] [email or web address] Internal Medicine 05/28/23 Angelica Gonzales CNP [address] [facility] [place] [address] Nurse Practitioner 05/28/23 Giovanna Lu NP [address] [place] [address]_[place]ergy & [place] [address] Nurse Practitioner 05/28/23 Star Oleary OD [address] [facility] [address] [address] Optometry 06/06/24 Additional Source Comments The information contained in this document represents components of the legal health record. It is not the complete legal health record.[facility]
--- OUTSIDE RECORDS SUMMARY | 2024-12-19 08:03 | XMS_ITS | Encounter Summary ---
Author Organization [facility] Address [address] [facility] [address] [place] [address] Phone Care Team Providers Care Substation Superintendent Name Role Phone Sheron Koroma FREELANCE COPYWRITER Primary Care Provider [phone] Dany Burnett MD Unavailable [phone] Alvina Brooks OD Unavailable Madison Castillo MD Unavailable [phone] Angelica Gonzales FREELANCE COPYWRITER Unavailable Giovanna Lu SOLAR INSTALLATION SUPERVISOR Unavailable [phone] Star Oleary OD Unavailable [phone] Reason for Referral * MRI/CAT Scan - Closed Specialty Diagnoses / Procedures Referred By Contjed t Referred To Contact Radiology Diagnoses Allergic rhinitis, unspecified seasonality, unspecified trigger Nasal polyp Procedures CT Face CHG CT SCAN,MAXILLOFACIAL AREA,W/O CONTRAST Elvira Booth MD Phone: tel: fax: mailto:[email or web address] Referral ID Status Reason Start Date Expiration Date Visits Re quested Visits Authorized [id number] Closed 05/10/2020 11/06/2020 1 1 Encounter Details Date Type Department Care Team (Late st Contact Info) Description 05/10/2020 Ancillary Orders Virtual Department 30 [place] [address] Elvira Booth MD [address] [place] [address] [email or web address] Allergic rhinitis, unspecified seasonality, unspecified trigger; Nasal polyp Social History Tobacco Use Types Packs/Day Years [...] Description 01/23/2025 8:00 AM EST Office Visit [facility] [address] [place] [address] [place] [address] Angelica Gonzales CNP [address] [place] [address], 1st [place] [address] [email or web address] 06/06/2025 8:00 AM EDT Office Visit [address] [place] [address] Sheron Koroma CNP [address] [place] [address], [address] [place] [address] 06/08/2025 2:00 PM EDT Office Visit [address] [place] [address] Sheron Koroma FREELANCE COPYWRITER [address] [place] [address], [address] [place] [address] [email or web address] documented as of this encounter Results * CT FACE (SINUS) WITHOUT CONTRAST (05/24/2020 10:21 AM EST) Anatomical Region Laterality Modality Face Computed Tomogra phy 05/24/2020 10:2 4 AM EST Impressions 05/24/2020 10:27 AM EST 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 Narrative 05/24/2020 10:27 AM EST HISTORY: Sinusitis COMPARISON: None TECHNIQUE: CT sinus without IV contrast with axial, coronal, and sagittal reformatted images. Technique tailored for patient body habitus and [id number]. FINDINGS: There is opacification throughout the nasal airways, ethmoids and frontal sinuses. There is widening of the maxillary infundibula and ostia Suggesting sinonasal polyposis. There is extensive thickening in the mucosa of the right maxillary sinus with a small amount of fluid and mucoid secretions are seen in the right sphenoid sinus with fluid and some secretions on the left as well. No prominent bony changes there. OMUs and ostia are occluded diffusely. No gross orbital lesion. No edema or mass-effect in the visualized brain. No hydrocephalus. Mastoids and middle ear spaces are clear. There is some osteoarthritic change with flattening of the condyle at the right mandible head is somewhat anterior position of the condyle. Procedure Note Hima Quinteros MD - 05/24/2020 HISTORY: Sinusitis COMPARISON: None TECHNIQUE: CT sinus without IV contrast with axial, coronal, and sagittalreformatted images. Technique tailored for patient body habitus [id number]. FINDINGS: There is opacification throughout the nasal airways, ethmoids and frontalsinuses. There is widening of the maxillary infundibula and ostia Suggesting sinonasal polyposis. There is extensive thickening in themucosa of the right maxillary sinus with a small amount of fluid andmucoid secretions are seen in the right sphenoid sinus with fluid and somesecretions on the left as well. No prominent bony changes there. OMUs andostia are occluded diffusely. No gross orbital lesion. No edema or mass-effect in the visualized brain.No hydrocephalus. Mastoids and middle ear spaces are clear. There is someosteoarthritic change with flattening of the condyle at the right mandiblehead is somewhat anterior position of the condyle. 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 Right TM joint osteoarthritis. Elvira Booth MD IMG CT HEAD/NECK Fin al Result documented in this encounter Visit Diagnoses Diagnosis Allergic rhinitis, unspecified seasonality, unspecified trigger Nasal polyp Unspecified nasal polyp Allergic rhinitis, unspecified seasonality, unspecified trigger Nasal polyp Unspecified nasal polyp documented in this encounter Additional Health Concerns Infection Onset Date Last Indicated Resolved Time CoV-Presumed 12/10/2021 12/10/2021 12/31/2021 1:22 AM EDT Assessment Noted Time PHQ-2 Depression Total Score: 0 03/13/20 10:50 AM EST documented as of this encounter Care Teams Substation Superintendent Relationship Specialty Start Date End Date Sheron Koroma CNP [address] [place] [address], [address] [place] [address] [email or web address] PCP - General Family Medicine 05/19/19 Dany Burnett MD [address] [place] [address], [address] [place] [address] Internal Medicine 05/19/19 Alvina Brooks OD [address] [place] [address] Optometry 09/03/20 05/27/23 Madison Castillo MD [address] [facility], 1st [place] [address] Internal Medicine 05/28/23 Angelica Gonzales CNP [address] [facility], 1st [place] [address] [email or web address] Nurse Practitioner 05/28/23 Giovanna Lu NP [address] [facility] 108_Allergy & [place] [address] Nurse Practitioner 05/28/23 Star Oleary OD [address] [facility] [address] [address] Optometry 06/06/24 documented as of this encounter Additional Source Comments The information contained in this document represents components of the legal health record. It is not the complete legal health record.[facility]
--- OUTSIDE RECORDS SUMMARY | 2024-12-19 08:03 | XMS_ITS | Encounter Summary ---
Author Organization [facility] Address [address] [facility] [address] [place] [address] Phone Care Team Providers Care Ent Surgeon Name Role Phone Sheron Koroma CNP Primary Care Provider [phone] Dany Burnett MD Unavailable [phone] Alvina Brooks OD Unavailable Madison Castillo MD Unavailable [phone] Angelica Gonzales BUSINESS TEAM LEADER Unavailable [phone] Giovanna Lu ELECTRO MECHANICAL TECHNICIAN Unavailable Star Oleary OD Unavailable [phone] Encounter Details Date Type Department Care Team (Latest Contact Info) Description 04/05/2021 Transcribe Orders [facility] Laboratory [address] [place], [place] [id number] Sheron Koroma CNP [address] [facility], [address] [place] [address] [email or web address] Type 1 diabetes mellitus with hyperglycemia (Primary Dx) Social History Tobacco Use Types Packs/Day Years Used Date Smoking Tobacco: Never Smokeless Tobacco: Never Alcohol Use Standard Drinks/Week Comments Yes 0 (1 standard drink = 0.6 oz pur e alcohol) <2 drinks/month Child or Family Care Answer Date Record ed Do you have problems with on e of the following making it difficult for you to work, study, or receive health care? No 09/03/2020 Education Answer Date Recorded Are you interested in help w ith more adult education (for example, completing high school, GED, job training, learning the Lao language, technical skills, or developing parenting skills)? No 09/03/2020 Are you concerned about learning? Not on file 09/03/2020 Not on file 09/03/2020 Not on file 09/03/2020 Food Answer Date Recorded Within the past 6 months we worried whether our food would run out before we got money to buy more. Never True 09/03/2020 Within the past 6 months the food we bought just didn't last and we didn't have enough money to get more. Never True Paying for Meds Answer Date Recorded Do you have trouble paying for medicines? No 09/03/2020 Paying Utility Bills Answer Date Record ed Do you have trouble paying your heating or elect ricity bill? No 09/03/2020 Transportation Answer Date Recorded Has the lack of transportati on kept you from medical appointments or from getting medications? No 09/03/2020 Comments No Sex and Gender Information Value [...] Description 01/23/2025 8:00 AM EST Office Visit [facility] [address] [place] [address] [place] [address] Angelica Gonzales, DAVID [address] [place] [address], 1[address] [place] [address] [email or web address] 06/06/2025 8:00 AM EDT Office Visit [facility] [address] [place] [address] [place] [address] Sheron Koroma, DAVID [address] [place] [address], [address] [place] [address] 06/08/2025 2:00 PM EDT Office Visit [facility] [address] [place] [address] Sheron Koroma CNP [address] [facility], [address] [place] [address] [email or web address] documented as of this encounter Results * Microalbumin/creatinine ratio, random urine (05/14/2021 3:00 PM EST) URINE MICROALBUMIN <1.2 0 - 2.3 mg/dL [facility] URINE CREATININE 72 mg/dL [facility] MICROALB/CRE RATIO NOT CALCULATED 0 - 20 mg/g Cre [facility] Comment:due to Microalbumin <1.2 Urine (Urine) 05/14/2021 3:0 0 PM EST 05/14/2021 6:41 PM EST us Sheron Koroma CNP URINE ORDERABLES Final Re sult Performing Organization Address City/State/[facility] Co de Phone Number [facility] [address] [place] [address] documented in this encounter Visit Diagnoses Diagnosis Type 1 diabetes mellitus with hyperglycemia- Primary documented in this encounter Additional Health Concerns Infection Onset Date Last Indicated Resolved Time CoV-Presumed 12/10/2021 12/10/2021 12/31/2021 1:22 AM EDT Assessment Noted Time PHQ-2 Depression Total Score: 1 09/04/19 21 8:00 AM EDT documented as of this encounter Care Teams Ent Surgeon Relationship Specialty Start Date End Date Sheron Koroma CNP [address] [facility] [address] [place] [address] [email or web address] PCP - General Family Medicine 05/19/19 Dany Burnett MD [address] [facility], [address] [place] [address] Internal Medicine 05/19/19 Alvina Brooks OD [address] [place] [address] Optometry 09/03/20 05/27/23 Madison Castillo MD [address] [address] Internal Medicine 05/28/23 Angelica Gonzales CNP [address] [address] [email or web address] Nurse Practitioner 05/28/23 Giovanna Lu NP [address] [place] [address] 108_Allergy & [place] [address] Nurse Practitioner 05/28/23 Star Oleary OD [address] [facility] [address] [address] Optometry 06/06/24 documented as of this encounter Additional Source Comments The information contained in this document represents components of the legal health record. It is not the complete legal health record.[facility]
[2024-12-19 11:34] LABS: Alanine Aminotransferase 11 U/L (0-31); Albumin Level 3.9 g/dL (3.5-5.0); Alkaline Phosphatase 80 U/L (39-117); Anion Gap 11 (12-20); Aspartate Amino Transferase 19 U/L (5-31); Blood Urea Nitrogen 13 mg/dL (9-16); Calcium 8.9 mg/dL (8.4-10.2); Carbon Dioxide 26 mmol/L (22-29); Chloride 101 mmol/L (96-108); Cholesterol 151 mg/dL (<200); Estimated Glomerular Filt Rate > 60; HDL Cholesterol 48 mg/dL (>40); Potassium 4.5 mmol/L (3.3-5.1); Sodium 133 mmol/L (135-145); Total Protein 7.1 g/dL (6.5-8.0); Triglycerides 78 mg/dL (<150)
== END 2024-12-19 07:57 | disposition home or self-care (01) ==
LOC: HO.10HDL 07:56
PROVIDERS: Visit Provider Nurse Practitioner Adult Health
DX: E78.5 Hyperlipidemia, unspecified (principal)
CPT/HCPCS: 36415; 80053; 80061

== ENCOUNTER 2025-01-31 09:30 | Outpatient (REF) | payer OTHER, SELFPAY ==
--- OUTSIDE RECORDS SUMMARY | 2025-01-31 10:37 | XMS_ITS | Encounter Summary ---
Author Organization [facility] Address [address] [facility] [address] [place] [address] Phone Care Team Providers Care Furniture Polisher Name Role Phone Sheron Koroma CNP Primary Care Provider [phone] Dany Burnett MD Unavailable [phone] Alvina Brooks OD Unavailable [phone] Madison Castillo MD Unavailable [phone] Angelica Gonzales RESEARCH INTERN Unavailable [phone] Giovanna Lu MECHANICAL MAINTENANCE SUPERVISOR Unavailable Star Oleary OD Unavailable [phone] Encounter Details Date Type Department Care Team (Latest Contact Info) Description 04/05/2021 Transcribe Orders [facility] [address] [place] [address] Sheron Koroma CNP [address] [facility], [address] [place] [address] [email or web address] Type 1 diabetes mellitus with [...] high school, GED, job training, learning the [place] language, technical skills, or developing parenting skills)? [...] Care Team (Late st Contact Info) Description 06/06/2025 8:00 AM EDT Office Visit [address] [place] [address] Sheron Koroma CNP [address] [place] [address], [address] [place] [address] 06/08/2025 2:00 PM EDT Office Visit [address] [place] [address] Sheron Koroma CNP [address] [place] [address], [address] [place] [address] 07/23/2025 8:00 AM EDT Office Visit [facility] 22 [place] [address] Angelica Gonzales CNP [address] [facility], 1st [place] [address] [email or web address] documented as of this encounter Results * Microalbumin/creatinine ratio, random urine (05/14/2021 3:00 PM EST) URINE MICROALBUMIN <1.2 0 - 2.3 mg/dL [facility] URINE CREATININE 72 mg/dL [facility] MICROALB/CRE RATIO NOT CALCULATED 0 - 20 mg/g Cre [facility] Comment:due to Microalbumin <1.2 Urine (Urine) 05/14/2021 3:0 0 PM EST 05/14/2021 6:41 PM EST us Sheron Koroma CNP LAB URINE ORDERABLES Shana l Result Performing Organization Address City/State/[facility] [[email or web address]] Co de Phone Number [facility] [address] [place] [address] documented in this encounter Visit Diagnoses Diagnosis Type 1 diabetes mellitus with hyperglycemia- Primary documented in this encounter Additional Health Concerns Infection Onset Date Last Indicated Resolved Time CoV-Presumed 12/10/2021 12/10/2021 12/31/2021 1:22 AM EDT Assessment Noted Time PHQ-2 Depression Total Score: 1 09/04/19 21 8:00 AM EDT documented as of this encounter Care Teams Furniture Polisher Relationship Specialty Start Date End Date Sheron Koroma CNP [address] [facility], [address] [place] [address] PCP - General Family Medicine 05/19/19 Dany Burnett MD [address] [facility], [address] [place] [address] Internal Medicine 05/19/19 Alvina Brooks, OD [address] [place] [address] Optometry 09/03/20 05/27/23 Madison Castillo MD [address] [address] Internal Medicine 05/28/23 Angelica Gonzales CNP [address] [address] Nurse Practitioner 05/28/23 Giovanna Lu NP [address] [place] [address] 108_Allergy & [place] [address] Nurse Practitioner 05/28/23 Star Oleary OD [address] [facility] [address] [address] Optometry 06/06/24 documented as of this encounter Additional Source Comments The information contained in this document represents components of the legal health record. It is not the complete legal health record.[facility]
--- OUTSIDE RECORDS SUMMARY | 2025-01-31 10:37 | XMS_ITS | Encounter Summary ---
Author Organization [facility] Address [address] [facility] [address] [place] [address] Phone Care Team Providers Care Welder Fitter Gas Name Role Phone Sheron Koroma ADJUNCT POLITICAL SCIENCE INSTRUCTOR Primary Care Provider [phone] Dany Burnett MD Unavailable [phone] Alvina Brooks OD Unavailable Madison Castillo MD Unavailable [phone] Angelica Gonzales ADJUNCT POLITICAL SCIENCE INSTRUCTOR Unavailable Giovanna Lu MARKETING RESEARCH COORDINATOR Unavailable [phone] Star Oleary OD Unavailable [phone] Reason for Referral * MRI/CAT Scan - Closed Specialty Diagnoses / Procedures Referred By Contjed t Referred To Contact Radiology Diagnoses Allergic rhinitis, unspecified seasonality, unspecified trigger Nasal polyp Procedures CT Face CHG CT SCAN,MAXILLOFACIAL AREA,W/O CONTRAST Elvira Booth MD Phone: tel: fax: mailto:[email or web address] Referral ID Status Reason Start Date Expiration Date Visits Re quested Visits Authorized [id number] Closed 05/10/2020 11/06/2020 1 1 Encounter Details Date Type Department Care Team (Late st Contact Info) Description 05/10/2020 Ancillary Orders Virtual Department 30 [place] [address] Elvira Booth MD [address] [place] [address] [email or web address] Allergic rhinitis, unspecified seasonality, unspecified [...] Description 06/06/2025 8:00 AM EDT Office Visit [address] [place] [address] Sheron Koroma CNP [address] [place] [address], [address] [address] [email or web address] 06/08/2025 2:00 PM EDT Office Visit [address] [place] [address] Sheron Koroma CNP [address] [place] [address], [address] [place] [address] 07/23/2025 8:00 AM EDT Office Visit [facility] [address] [place] [address] [place] [address] Angelica Gonzales CNP [address] [place] [address], 1st [place] [address] [email or web address] documented as of this encounter Results * [...] Technique tailored for patient body habitus and [id number]-af-cutm. FINDINGS: There is opacification throughout the nasal [...] images. Technique tailored for patient body habitus [id number]. FINDINGS: There is opacification throughout the nasal [...] of the nasalairways. Right TM joint osteoarthritis. us Elvira Booth MD IMG CT HEAD/NECK Fin [...] Time PHQ-2 Depression Total Score: 0 03/13/20 20 10:50 AM EST documented as of this encounter Care Teams Welder Fitter Gas Relationship Specialty Start Date End Date Sheron Koroma CNP [address] [place] [address], [address] [place] [address] [email or web address] PCP - General Family Medicine 05/19/19 Dany Burnett MD [address] [place] [address], [address] [place] [address] Internal Medicine 05/19/19 Alvina Brooks OD [address] [place] [address] Optometry 09/03/20 05/27/23 Madison Castillo MD [address] [place] [address], 1st [place] [address] Internal Medicine 05/28/23 Angelica Gonzales CNP 22 [facility], 1st [place] [address] [email or web address] Nurse Practitioner 05/28/23 Giovanna Lu NP [address] [facility] 108_Allergy & [place] [address] Nurse Practitioner 05/28/23 Star Oleary OD 1655 [facility] [address] [address] Optometry 06/06/24 documented as of this encounter Additional Source Comments The information contained in this document represents components of the legal health record. It is not the complete legal health record.[facility]
--- OUTSIDE RECORDS SUMMARY | 2025-01-31 10:37 | XMS_ITS | Encounter Summary ---
Author Organization [facility] Address [address] [place] [address] Phone Care Team Providers Care Cash Posting Representative Name Role Phone Sheron Koroma MANUFACTURERS AGENT Primary Care Provider [phone] Dany Burnett MD Unavailable [phone] Alvina Brooks OD Unavailable Madison Castillo MD Unavailable [phone] Angelica Gonzales MANUFACTURERS AGENT Unavailable Giovanna Lu CAST IRON DIPPER Unavailable [phone] Star Oleary OD Unavailable [phone] Encounter Details Date Type Department Care Team (Late st Contact Info) Description 05/10/2020 Procedure Pass [facility], Ct Scan - [address] [address] Social History Tobacco Use Types Packs/Day Years [...] Description 06/06/2025 8:00 AM EDT Office Visit [address] [place] [address] Sheron Koroma CNP [address] [place] [address], [address] [place] [address] 06/08/2025 2:00 PM EDT Office Visit [address] [place] [address] Sheron Koroma CNP [address] [place] [address], [address] [place] [address] 07/23/2025 8:00 AM EDT Office Visit [facility] [address] [place] [address] [place] [address] Angelica Gonzales CNP [address] [place] [address], 1st [place] [address] documented as of this encounter Visit Diagnoses Not on filedocumented in this encounter Additional Health Concerns Infection Onset Date Last Indicated Resolved Time CoV-Presumed 12/10/2021 12/10/2021 12/31/2021 1:22 AM EDT Assessment Noted Time PHQ-2 Depression Total Score: 0 03/13/20 10:50 AM EST documented as of this encounter Care Teams Cash Posting Representative Relationship Specialty Start Date End Date Sheron Koroma CNP [address] [place] [address], [address] [place] [address] PCP - General Family Medicine 05/19/19 Dany Burnett MD [address] [place] [address], [address] [place] [address] Internal Medicine 05/19/19 Alvina Brooks OD [address] [place] [address] Optometry 09/03/20 05/27/23 Madison Castillo MD 22 [facility], [address] [place] [address] [email or web address] Internal Medicine 05/28/23 Angelica Gonzales CNP [address] [address] [email or web address] Nurse Practitioner 05/28/23 Giovanna Lu NP 269 [facility] 108_Allergy & [place] [address] Nurse Practitioner 05/28/23 Star Oleary OD 1655 [facility] [address] [address] Optometry 06/06/24 documented as of this encounter Additional Source Comments The information contained in this document represents components of the legal health record. It is not the complete legal health record.[facility]
--- OUTSIDE RECORDS SUMMARY | 2025-01-31 10:37 | XMS_ITS | Encounter Summary ---
Author Organization [facility] Address [email or web address] [place] [address] Phone Care Team Providers Care Digital Service Engineer Name Role Phone Sheron Koroma KILN TENDER Primary Care Provider [phone] Dany Burnett MD Unavailable [phone] Madison Castillo MD Unavailable [phone] Angelica Gonzales KILN TENDER Unavailable Giovanna Lu COUNTY ASSESSOR Unavailable [phone] Star Oleary OD Unavailable [phone] Encounter Details Date Type Department Care Team (Late st Contact Info) Description 10/23/2024 Telephone Man [facility] [address] [place], [place] [id number] [email or web address] Social History Tobacco Use Types Packs/Day [...] high school, GED, job training, learning the [place] language, technical skills, or developing parenting skills)? [...] Description 06/06/2025 8:00 AM EDT Office Visit [address] [place] [address] Sheron Koroma CNP [address] [place] [address], [address] [place] [address] 06/08/2025 2:00 PM EDT Office Visit [address] [place] [address] Sheron Koroma CNP [address] [place] [address], [address] [place] [address] 07/23/2025 8:00 AM EDT Office Visit [facility] [address] [place] [address] [place] [address] Angelica Gonzales CNP [address] [place] [address], 1[address] [place] [address] [email or web address] documented as of this encounter Visit Diagnoses Not on filedocumented in this encounter Additional Health Concerns Assessment Noted Time PHQ-2 Depression Total Score: 0 06/07/19 25 2:44 PM EDT documented as of this encounter Care Teams Digital Service Engineer Relationship Specialty Start Date End Date Sheron Koroma CNP [address] [place] [address], [address] [place] [address] PCP - General Family Medicine 05/19/19 Dany Burnett MD [address] [place] [address], [address] [place] [address] Internal Medicine 05/19/19 Madison Castillo MD 22 [facility], [address] [place] [address] [email or web address] Internal Medicine 05/28/23 Angelica Gonzales CNP 22 [facility], [address] [place] [address] [email or web address] Nurse Practitioner 05/28/23 Giovanna Lu NP [address] [place] [address] [address] [place] [address] Nurse Practitioner 05/28/23 Star Oleary OD 1655 [facility] [address] [address] Optometry 06/06/24 documented as of this encounter Additional Source Comments The information contained in this document represents components of the legal health record. It is not the complete legal health record.[facility]
--- OUTSIDE RECORDS SUMMARY | 2025-01-31 10:37 | XMS_ITS | Clinical Summary ---
Author Organization [facility] Address [address] [place] [address] Phone Care Team Providers Care Home Health Clinician Name Role Phone Sheron Kormoa SEED ANALYST Primary Care Provider [phone] Dany Burnett MD Unavailable [phone] Madison Castillo MD Unavailable [phone] Angelica Gonzales CNP Unavailable Giovanna Lu CRITICAL CARE NURSE Unavailable [phone] Star Oleary OD Unavailable [phone] Allergies Active Allergy Reactions Criticality Noted Date [...] mg under the skin once a week. 09/24/19 23 Active ACCU-CHEK GUIDE TEST STRIPS Strp stripsIndications :Type 1 diabetes mellitus without complication,Insu lisa pump in place 1 each by Miscellaneous route 2 (two) times a day. 200 strip 11 05/31/19 24 Active insulin pen needles, disposable, 32 gauge x 5/32 NdleIndications:T ype 1 diabetes mellitus with hyperglycemia 1 each by Miscellaneous route as needed. 30 each 1 06/18/19 24 Active montelukast (SINGULAIR) 10 mg tablet TAKE ONE (1) TABLET BY MOUTH EVERY NIGHT AT BEDTIME 90 tablet 3 03/30/19 25 Active HUMALOG U-100 INSULIN 100 unit/mL injection vialIndications:T ype 1 diabetes mellitus with hyperglycemia INJECT UP TO 110 UNITS DAILY VIA INSULIN PUMP 100 mL 3 07/21/19 25 Active pravastatin (PRAVACHOL) 40 MG tablet TAKE ONE (1) TABLET BY MOUTH EVERY DAY 120 tablet 2 08/31/19 25 Active atorvastatin (LIPITOR) 40 MG tabletIndications :Hyperlipidemia LDL goal <70 Take 1 tablet (40 mg total) by mouth daily. 90 tablet 2 12/22/19 25 Active Additional Information Patient not taking.Reported on 01/23/2025 Active Problems Problem Noted Date Diagnosed Date [...] without macular edema 06/19/2024 Assessment & Plan (01/23/2025 12:35 PM EST): Up to date on eye care Reviewed eye exam from earlier year Mild NPDR both eyes Assessment & Plan (12/06/2024 8:58 AM EDT): [...] continue weekly D2 therapy, d/c OTC D3. Type 1 diabetes mellitus with hyperglycemia 10/21 Assessment & Plan (01/23/2025 12:45 PM EST): Reviewed pump data with [employer] Continues using CGM consistently and the iLet insulin pump, encouraged timely bolus entry, even trying to bolus 5 minutes premeal since elevations seem to be happening when the rise on CGM is already happening Encouraged continued efforts at mindful, balanced eating Encouraged continued efforts at physical activity as tolerated Up to date on eye and foot care and flu vaccine We will follow up in 6 months. Advised to contact office with any questions or concerns Assessment & Plan (12/06/2024 8:58 AM EDT): [...] other labs as ordered. Follow up with security operations specialist as planned. Annual diabetic eye exam. [...] was discontinued by the ordering provider in [place], also tried Victoza, but could not tolerate [...] Encouraged to reach out to her pump vacuum metalizing supervisor and supply distributer to discuss recent issues. [...] (05/28/2023 3:49 PM EST): Consider return to MANAGER PATIENT based on cytology/HPV findings. Insulin pump in place 01/30/2020 Assessment & Plan (01/23/2025 12:39 PM EST): No insulin pump adjustments made today, discussed strategies to aid in mealtime increases Continues on the iLet pump, this pump does not take any settings, only weight and lets user choose usual , lower , or higher targets Reviewed insulin pump and CGM data with [employer] today, this indicates improving control since starting the system with accompanying less diabetes burden and less work which is extremely positive Assessment & Plan (07/21/2024 11:30 AM EDT): [...] boluses Encouraged Roverto to reach out to [facility] support for trouble with tconnect Roverto is [...] on your overnight patterns, particularly in the driver license agent hours the jump in basal at 3am [...] AM EDT): She has been followed by [facility] but has been frustrated by difficulty scheduling and receiving prescriptions. Referred to [facility]. Continue Singulair, Abby, and Nasacort. Orders: [...] LDL goal <70 05/26/2019 Assessment & Plan (01/23/2025 12:37 PM EST): Reviewed labwork, LDL 88 - statin was changed to atorvastatin after last appt with PCP Sheron Koroma CRITICAL CARE NURSE Has not started atorvastatin while ending current supply of pravastatin Assessment & Plan (12/06/2024 8:58 AM EDT): [...] improve. Pt verbalized understanding, agreeable to plan. Vitamin D deficiency, unspecified 11/16/2022 01/23/2025 Assessment & Plan (06/06/2024 3:40 PM EDT): [...] no medications known to contribute to deficiency. Malaise and fatigue 11/16/2022 05/28/19 24 Mixed [...] Roverto is provided a share code for [employer] and is encouraged to share her data with us if she would like input on insulin delivery adjustments Encouraged to continue her healthy lifestyle and excellent efforts Advised to contact me with any questions or concerns We discussed COVID related considerations and precautions Encounters Date Type Department Care Team Description 01/23/2025 8:00 AM EST Office Visit [facility] [address] [place] [address] [place] [address] Angelica Gonzales CNP Type 1 diabetes mellitus with hyperglycemia (Primary Dx); 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; Insulin pump in place; Hyperlipidemia LDL goal <70 12/21/[address] [place] [address] Cristy Gibbons, RN Results 12/06/2024 8:30 AM EDT Office Visit [address] [place] [address] Sheron Koroma CNP Type 1 diabetes mellitus with hyperglycemia (Primary Dx); 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; Hyperlipidemia LDL goal <70; Environmental allergies; Needs flu shot from Last 3 Months Immunizations Immunization Administration Dates Next Due COVID-19 (Pre) Pfizer Vaccine, mRNA, PF 04/01/2020,03/11/2020 COVID-19 (Pre) Pfizer Vaccine, mRNA, sven-sucrose, PF 04/23/2021 INFLUENZA, [...] Problems Daughter Esophageal cancer Father Worked in [employer] Glaucoma Maternal Grandfather Prostate cancer Maternal Grandfather Later in [facility] Diabetes type II Maternal Grandmother Breast cancer Mother Genetic testing not done Obesity Mother Treated with gas tric bypass Osteoarthritis Mother Psoriasis Mother Heart attack Paternal Grandfather Later in [facility] No Known Problems Paternal Grandmother Anxiety disorder [...] high school, GED, job training, learning the Lithuanian language, technical skills, or developing parenting skills)? [...] your housing situation today? I have bernard chew 06/06/2024 How many times have you move [...] Sign Reading Time Taken Comments Blood Pressure 122/76 01/23/2025 7:54 AM EST Pulse 111 01/23/2025 7:54 AM EST Temperature 36.4 C (97.6 F) 12/06/2024 8:17 AM EDT Respiratory Rate 18 10/20/2022 3:17 PM EDT Oxygen Saturation 98% 01/23/2025 7:54 AM EST Inhaled Oxygen Concentration - - Weight 97.1 kg (214 lb) 01/23/2025 7:54 AM EST Height 169.5 cm (5' 6.73 ) 01/23/2025 7:54 AM ES T Body Mass Index 33.79 01/23/2025 7:54 AM EST Plan of Treatment Upcoming Encounters Date Type Department Care Team (Late st Contact Info) Description 06/06/2025 8:00 AM EDT Office Visit [address] [place] [address] Sheron Koroma, SEED ANALYST [address] [place] [address], [address] [place] [address] 06/08/2025 2:00 PM EDT Office Visit [address] [place] [address] Sheron Koroma, SEED ANALYST [address] [place] [address], [address] [place] [address] 07/23/2025 8:00 AM EDT Office Visit [facility] [address] [place] [address] [place] [address] Angelica Gonzalse SEED ANALYST [address] [place] [address], 1[address] [place] [address] Health Maintenance Due Date Last Done Comments COVID-19 VACCINE ( season) 2024 04/23/2021, 04/01/2020, 03/11/2020 DIABETIC EYE EXAM 03/23/2025 03/23/2024, , 04/22/2021, Additional history exists DEPRESSION SCREENING 06/06/2025 06/06/2024 URINE MICROALBUMIN/CREATININE RATIO 06/06/2025 06/06/2024, 05/28/2023, 06/10/2022, Additional history exists BLOOD PRESSURE 07/23/2025 01/23/2025 HEMOGLOBIN A1C 07/23/2025 01/23/2025, 05/0 03/2024, 01/17/2024, Additional history exists MAMMOGRAM 12/23/2025 12/24/2023, 12/03/2023 PAP SMEAR 05/27/2026 05/28/2023, 04/23, 05/14/2021, Additional history exists Adult Td,Tdap Booster 07/18/2028 07/18/2018 , 12/13/2006, 03/22/1996 HEPATITIS C SCREENING Completed 04/05/2021, 021 HIV ONE-TIME SCREENING (18-65 YEARS) Completed 04/05/2021 PNEUMOCOCCAL VACCINES (0-49 years) Completed 11/12/2021, 03/22/2017 INFLUENZA VACCINE Completed 12/06/2024, , 01/21/2023, Additional history exists SMOKING STATUS SCREENING (Once After 26 Yrs) Completed 01/23/2025 HEPATITIS A VACCINES Aged Out No long [...] Associated Diagnosis Comments POCT HEMOGLOBIN A1C Routine 01/23/2025 8 :22 AM EST Type 1 diabetes mellitus with hyperglycemia COMPREHENSIVE METABOLIC PANEL (CMP) Routine 12/19/2024 Hyperlipidemia LDL goal <70 LIPID PANEL Routine 12/19/2024 Hyperlipidemia LDL goal <70 MICROALBUMIN/CREATINI NE RATIO, RANDOM URINE Routine 06/06/2024 3:27 PM EDT Type 1 diabetes mellitus with hyperglycemia DIABETES EYE EXAM FOR RESULT ENTRY ONLY Routine 03/23/2024 11:35 AM EST HM MAMMOGRAPHY Routine 12/24/2023 4:55 PM EDT PAP TEST Routine 05/28/2023 12:00 AM EST HEPATITIS C ANTIBODY, QUALITATIVE Routine 04/05/2021 8:45 AM EST Need for hepatitis C screening test from Last 3 Months or Most Recently Relevant to Health Maintenance Results * (ABNORMAL) POCT Hemoglobin A1c (Enter/Edit) (01/23/2025 8:22 AM EST) Hemoglobin A1c 7.1(A) 4.2 - 5.6 % [facility] 01/23/2025 8:22 AM EST us Angelica Gonzales SEED ANALYST LAB POCT ENTER/EDIT ORDERABLE S Final Result Performing Organization Address City/State/[facility] Co de Phone Number [facility] [address] [place] [address], [facility] [place] * Comprehensive metabolic panel (12/19/2024) Sodium - External 133 135 - 145 EXTERNAL NON-INTERFACED REF LAB Potassium - External 4.5 3.3 - 5.1 EXTERNAL NON-INTERFACED REF LAB Chloride - External 101 96 - 108 EXTERNAL NON-INTERFACED REF LAB CO2 - External 26 22 - 29 EXTER NAL NON-INTERFACED REF LAB BUN - External 13 9 - 16 EXTER NAL NON-INTERFACED REF LAB Creatinine - External 0.71 0.5 - 1.4 EXTERNAL NON-INTERFACED REF LAB Glucose - External 341 60 - 115 EXTERNAL NON-INTERFACED REF LAB Albumin - External 3.9 3.5 - 5.0 EXTERNAL NON-INTERFACED REF LAB Protein - External 7.1 6.5 - 8.0 EXTERNAL NON-INTERFACED REF LAB Calcium - External 8.9 8.4 - 10.2 EXTERNAL NON-INTERFACED REF LAB Alkaline Phosphatase - External 80 39 - 117 EXTERNAL NON-INTERFACED REF LAB Bilirubin, total - External 0.5 0.0 - 1.0 EXTERNAL NON-INTERFACED REF LAB AST - External 19 5 - 31 EXTER NAL NON-INTERFACED REF LAB ALT - External 11 0 - 31 EXTER NAL NON-INTERFACED REF LAB Globulin - External EXTERNAL NON-INTERFACED REF LAB eGFR - External >60 EXTE RNAL NON-INTERFACED REF LAB Anion Gap - External EXTERNAL NON-INTERFACED REF LAB Blood 12/19/2024 [facility] BLOOD BKR ORDERABLES Edited Result - Final Performing Organization Address [facility] Co de Phone Number EXTERNAL NON-INTERFACED REF LAB * Lipid panel (12/19/2024) HDL - External 48 >40 EXTER NAL NON-INTERFACE D REF LAB Cholesterol, Total - External 151 <200 EXTERNAL NON-INTERFACE D REF LAB Triglycerides - External 78 <150 EXTERNAL NON-INTERFACE D REF LAB LDL, calculated - External 88 <100 EXTERNAL NON-INTERFACE D REF LAB Cardiac Risk Ratio - External EXTERNAL NON-INTERFACE D REF LAB Non-HDL Cholesterol - External EXTERNAL NON-INTERFACE D REF LAB Blood 12/19/2024 [facility] LAB BLOOD BKR ORDERABLES Edited Result - Final Performing Organization Address [facility]/[place] de Phone Number EXTERNAL NON-INTERFACED REF LAB * Microalbumin/creatinine ratio, random urine (06/06/2024 3:27 PM EDT) URINE MICROALBUMIN <1.2 0 - 2.3 mg/dL [facility] URINE CREATININE 210 mg/dL [facility] MICROALB/CRE RATIO NOT CALCULATED 0 - 20 mg/g Cre [facility] Comment:due to Microalbumin <1.2 Urine (Urine) 06/06/2024 3:2 7 PM EDT 06/07/2024 3:11 PM EDT [facility] LAB URINE ORDERABLES Shana l Result Performing Organization Address City/[facility]/ZIP Co de Phone Number [address] [address] * HM DIABETES EYE EXAM FOR RESULT ENTRY ONLY (03/23/2024 11:35 AM EST) us Historical Provider HEALTH MAINTENANCE Final Result * HM MAMMOGRAPHY FOR RESULT ENTRY ONLY (12/24/2023 4:55 PM EDT) us Historical Provider HEALTH MAINTENANCE Edited Result - Final * Pap Test (05/28/2023 12:00 AM EST) Report [address] [address] Outsoles Channel Opener: Francesca Jarrett MD MANAGER PATIENT Cytology Report FINAL DIAGNOSIS A. PAP SMEAR [...] 59, 66, 68) Note: Testing performed by [employer] HR-HPV analysis. Clinical correlation is advised. This HPV test was performed at [facility], [address] [place] [address]. This test has been FDA approved for both SurePath and ThinPrep cervical cytology specimens. The accuracy and precision of this test for all other specimen sources has been verified in the Cytopathology Laboratory of the [facility] and has not been cleared or approved by the U.S. Food and Drug Administration. Clinical correlation is advised. CLINICAL HISTORY Date of Last Menstrual Period: 05/07/23 Infection History: HPV: HIGH RISK, 2021 Other Clinical Conditions: Screening Pap SPECIMEN SOURCE A: PAP SMEAR (SUREPATH) CE Patient Name: ROVERTO DUFF : 1980 (Age: 42) Sex: F Institution: [facility] Location: [facility] Date of Collection: 05/28/2023 Date of Reported: 06/08/2023 14:21 Results to: Sheron Koroma [employer] Final Diagnosis A. PAP SMEAR (SUREPATH) CE: SPECIMEN ADEQUACY: Satisfactory for evaluation; transformation zone present. INTERPRETATION: NEGATIVE FOR INTRAEPITHELIAL LESION OR MALIGNANCY. Coccobacilli consistent with shift in bogdan [facility] Results\Inter pretation A. PAP SMEAR (SUREPATH) CE: Human Papilloma Virus TestNEGATIVE for high-risk Human Papilloma Virus types 16, 18, 45 and the Other high risk probe set (Includes 31, 33, 35, 39, 51, 52, 56, 58, 59, 66, 68)Note: Testing performed by [employer] HR-HPV analysis. Clinical correlation is advised. This HPV test was performed at [facility], [address] [place] [address]. This test has been FDA approved for both SurePath and ThinPrep cervical cytology specimens. The accuracy and precision of this test for all other specimen sources has been verified in the Cytopathology Laboratory of the [facility] and has not been cleared or approved by the U.S. Food and Drug Administration. Clinical correlation is advised. [facility] Conversion Type (Conversion Source) 05/28/2023 06/01/2023 9:04 AM EDT Sheron Koroma [facility] CYTOLOGY ORDERABLES Edite d Result - Final [facility] [address] [place] [address] * Hepatitis C antibody, qualitative (04/05/2021 8:45 AM EST) HCV NON-REACTIV E NON-REACTI VE [facility] Blood 04/05/2021 8:45 AM EST 04/05/2021 8:51 AM EST Sheron Lugarry SEED ANALYST LAB BLOOD BKR ORDERABLES Final Result Performing Organization Address City/State/[facility] Co de Phone Number [address] [phone] from Last 3 Months or Most Recently Relevant to Health Maintenance Insurance [employer] ADMINISTRAT[employer] BENEFITS ADMINISTRATORS [employer] BENEFITS ADMINISTRATORS [employer] BENEFITS ADMINISTRATORS [employer] BENEFITS ADMINISTRATORS [facility] BL[facility] BENEFITS ADMINISTRATORS Care Teams Home Health Clinician Relationship Specialty Start Date End Date Sheron Koroma CNP [address] [place] [address], [address] [place] [address] [email or web address] PCP - General Family Medicine 05/19/19 Dany Burnett MD [address] [place] [address], [address] [place] [address] [email or web address] Internal Medicine 05/19/19 Madison Castillo MD [address] [place] [address], 1[address] [place] [address] [email or web address] Internal Medicine 05/28/23 Angelica Gonzales CNP [address] [facility], 1st [place] [address] [email or web address] Nurse Practitioner 05/28/23 Giovanna Lu NP [address] [facility] 108_Allergy & [place] [address] Nurse Practitioner 05/28/23 Star Oleary OD [address] [facility] [address] [address] Optometry 06/06/24 Additional Source Comments The information contained in this document represents components of the legal health record. It is not the complete legal health record.[facility]
[2025-01-31 10:59] LABS: MANUAL DIFF FLAG NO
[2025-01-31 11:06] LABS: Hematocrit 39.0 % (37.0-47.0); Hemoglobin 12.8 g/dl (12.0-16.0); Imm Gran Abs Auto 0.01 X10*3/uL (0.00-0.03); Imm Gran Pct Auto 0.1 % (0.0-0.4); Lymphocytes Absolute Auto 2.6 X10*3/uL (1.2-4.9); Mean Corpuscular HGB Conc 32.8 g/dl (31.0-35.0); Mean Corpuscular Hemoglobin 30.4 pg (27.0-33.0); Mean Corpuscular Volume 92.6 fL (80.0-98.0); NRBC Abs Auto 0.000 X10*3/uL (0.0-0.012); NRBC Pct Auto 0.0 /100WBC (0.0-0.2); Platelet Count 362 X10*3/uL (160-400); Red Blood Count 4.21 X10*6/uL (4.20-5.50); White Blood Count 8.7 X10*3/uL (4.8-10.8)
[2025-01-31 11:48] LABS: Anion Gap 12 (12-20); Blood Urea Nitrogen 15 mg/dL (9-16); Calcium 9.7 mg/dL (8.4-10.2); Carbon Dioxide 28 mmol/L (22-29); Chloride 103 mmol/L (96-108); Estimated Glomerular Filt Rate > 60; Potassium 4.0 mmol/L (3.3-5.1); Sodium 139 mmol/L (135-145)
[2025-01-31 11:50] LABS: Ferritin 86 ng/mL (10-250)
[2025-01-31 12:01] LABS: Vitamin B12 368 pg/mL (200-900)
== END 2025-01-31 09:31 | disposition home or self-care (01) ==
LOC: HO.10HDL 09:30
PROVIDERS: Visit Provider Nurse Practitioner Adult Health
DX: N95.1 Menopausal and female climacteric states (principal); G47.9 Sleep disorder, unspecified; R53.81 Other malaise; R53.83 Other fatigue; E87.1 Hypo-osmolality and hyponatremia
CPT/HCPCS: 36415; 80048; 82607; 82728; 84146; 84443; 85025